=== PATIENT | male | born 1975 | race Caucasian/White ===

== ENCOUNTER 2022-09-26 09:15 | Emergency (ER) | payer BC ==
--- OUTSIDE RECORDS SUMMARY | 2022-09-26 09:18 | XMS REPORT | Continuity of Care Document ---
:1975 Author Organization Formerly [facility] t Address [address] [place] [address] Care Team Providers Name Role Phone JUANITO BROWN Primary Care Physician Unavailable JUANITO BROWN Attending Clinician Unavailable RAKESH TORRES Attending Clinician Unavailable Ken Khan MD Attending Clinician Gwendolyn Lam MD Attending Clinician Unknown, Attending Attending Clinician Unavailable UNKNOWN, ATTENDING Attending Clinician Unavailable GWENDOLYN LAM Attending Clinician Unavailable Doctor Unassigned, [place] Attending Clinician Unavailable LAB90 Attending Clinician Unavailable GERARDO HUDSON Attending Clinician Unavailable Halle Pino Attending Clinician Gerardo Rae Attending Clinician SURYA BETHEA Attending Clinician Unavailable Surya Bethea MD Attending Clinician Radha Spaulding MD Attending Clinician [phone] HALLE MYERS Attending Clinician Unavailable VALARIE TOMLINSON Attending Clinician Unavailable MAURICE CRONIN Attending Clinician Unavailable PAVEL YARBROUGH Attending Clinician Unavailable DORA PRUITT Attending Clinician Unavailable KOJO PATIÑO Attending Clinician Unavailable Payers Payer Name Policy Type Policy Number Effective Date Expiration Date S [facility] 2 [id number] 2022 00:00:00 Problems Condition Condition Condition Status Onset Resolution Last Treating Co mments Source Name Details Category Date Date Treatment Clinician Date Well adult Well adult Disease Active 2021-04 Chris parikh exam exam 04-12 Seybold 00:00: - 00 Externa l Primary Primary Disease Active 2021-04 Elsa hypertensi hypertensi 04-12 Se ybold on on 00:00: - 00 Externa l Fatty Fatty Disease Active 2021-04 Elsa liver liver 04-12 Seybold 00:00: - 00 Externa l Class 3 Class 3 Disease Active 2021-04 Elsa severe severe 04-12 Seybold obesity obesity 00:00: - due to due to 00 Externa excess excess l calories calories with with serious serious comorbidit comorbidit y and body y and body mass index mass index (BMI) of (BMI) of 40.0 to 40.0 to 44.9 in 44.9 in adult adult Gastroesop Gastroesop Disease Active 2021-04 Chris jl hageal hageal 04-12 Seybold reflux reflux 00:00: - disease disease 00 Externa without without l esophagiti esophagiti s s History of History of Disease Active 2021-04 Chris jl cold sores cold sores 04-12 Se ybold 00:00: - 00 Externa l Elevated Elevated Disease Active 2021-04 Kelse y liver liver 04-12 Seybold function function 00:00: - tests tests 00 Externa l COVID-19 COVID-19 Disease Active 2020-04 Unive rs virus virus 0-15 [place] Fever Fever Disease Active 2020-04 Univers blister blister 0-15 ity of 00:00: [place] 00 Medical Branch Aortic Aortic Disease Active 2020-04 Univers root root 0-15 ity of dilation dilation 00:00: [place] 00 Medical Branch Need for Need for Disease Active 2020-04 Unive rs hepatitis hepatitis 0-15 ity of C C 00:00: [place] screening screening 00 Medi smooth test test Branch Need for Need for Disease Active 2020-04 Unive rs influenza influenza 0-15 it[place] of vaccinatio vaccinatio [place] Hypertrigl Hypertrigl Disease Active 2020-04 U nivers yceridemia yceridemia 0-15 it y of 00:00: [place] 00 Medical Branch Asymptomat Asymptomat Disease Active U nivers ic ic 8-25 ity of hypertensi hypertensi 00:[place] ve urgency ve urgency 00 Me dical Branch Anxiety Anxiety Disease Active Univers and and 8-25 ity of depression depression 00:00: [place] Morbid Morbid Disease Active Univers obesity obesity 8-25 ity of with body with body 00:[place] mass index mass index 00 Me dical (BMI) of (BMI) of Branch 40.0 or 40.0 or higher higher Alcohol Alcohol Disease Active Univers dependence dependence 8-25 it y of with with 00:00: [place] uncomplica uncomplica 00 Me dical cortney cortney Branch withdrawal withdrawal Essential Essential Disease Active Uni vers hypertensi hypertensi 9-17 it y of on, benign on, benign 00:[place]: [place] Obesity Obesity Disease Active Univers (BMI (BMI 4-12 ity of 30-39.9) 30-39.9) 00:00: [place] 00 [facility] Branch Allergies, Adverse Reactions, Alerts Allergy Allergy Status Severity Reaction(s) Onset Inactive Treating Comm ents Source Name Type Date Date Clinician NO KNOWN Drug Active Univers ALLERGIE Class ity of S [facility] Social History Social Habit Start Date Stop Date Quantity Comments Source Gender identity [facility] Sexual orientation [facility] History SDOH Elsa kat - Alcohol Binge External History SDOH Elsa kat - Alcohol Frequency Externa l History ALECIA kat - 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 Exposure to 2022-03-28 2022-04-07 Not sure [facility]-CoV-2 (event) 00:00:00 14:38:00 [facility] Alcohol Comment 2022-02-10 2022-02-10 Weekly Elsa correa - 00:00:00 00:00:00 External Education 2022-02-10 2022-02-10 18 Esla Lai - 00:00:00 00:00:00 External History of Social 2022-02-10 2022-02-10 Elsa Lai - function 00:00:00 00:00:00 External Alcohol intake 2022-02-10 2022-02-10 Elsa Sey bold - 00:00:00 00:00:00 External Tobacco use and 2021-11-15 2021-11-15 User of smokeless Un iversity of exposure 00:00:00 00:00:00 tobacco [facility] Tobacco Comment 2021-11-15 2021-11-15 Occasional Universit y of 00:00:00 00:00:00 chewing tobacco [facility] Sex Ass[birth year] [facility] 00:[facility] Smoking Status Start Date Stop Date Source Tobacco smoking consumption [facility] unknown Never smoked tobacco [facility] Medications Ordered Filled Start Stop Current Ordering Indication Dosage Frequency Signature Comments Components Source Medication Medication Date Date Medication? 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 albuterol 0 Yes [id number] 2.5mg Inhale 3 Univers 2.5 mg /3 1-02 mL every 4 ity of mL (0.083 00:00: (four) [place] %) 00 hours as Medical nebulizer needed for Bran ch solution Shortness of Breath. amoxicillin 2022- No [id number] 1{tbl} Take 1 Univers -clavulanat 1-02 01-10 tablet by it y of e 00:00: 05:59 mouth in [place] (AUGMENTIN) 00 :00 the Medical 875-125 mg morning Branch per tablet and 1 tablet in the evening. Do all this for 7 days. olmesartan 2021-04- No 5mg QD Take 1 Meth yesy (Benicar) 5 2-12 12-13 tablet (5 st MG tablet 00:00: 05:59 mg total) Ho spita 00 :00 by mouth l daily. Omeprazole 2021-04 Yes 20mg Take 20 mg K elsey 20 MG oral 1-07 by mouth Seybo ld Delayed 08:52: daily - Release 04 Externa Capsule l Omeprazole 2021-04 Yes 20mg Take 20 mg K elsey 20 MG oral 1-07 by mouth Seybo ld Delayed 08:52: daily - Release 04 Externa Capsule l Omeprazole 2021-04 Yes 20mg Take 20 mg K elsey 20 MG oral 1-07 by mouth Seybo ld Delayed 08:52: daily - Release 04 Externa Capsule l Valacyclovi 2021-04 Yes [id number] 500mg Take 1 Elsa r HCl 1-07 tablet Seybold (Valtrex) 00:00: (500 mg - 500 MG oral 00 total) by Ext tenisha Tablet mouth 2 l times daily carvedilol Yes TAKE 1 Unive rs 40 mg 24 hr 8-31 CAPSULE BY it y of capsule 00:00: MOUTH [place] EVERY DAY Medical WITH FOOD Branch olmesartan Yes 5mg Take 5 mg Un ora 5 mg tablet 8-31 by mouth ity of 00:00: in the [place] 00 morning. Medical Branch carvedilol Yes TAKE 1 Unive rs 40 mg 24 hr 8-31 CAPSULE BY it y of capsule 00:00: MOUTH EVERY DAY Medical WITH FOOD Branch olmesartan Yes 5mg Take 5 mg Un ora 5 mg tablet 8-31 by mouth ity of 00:00: in the [place] morning. Medical Branch carvedilol 0 Yes TAKE 1 Unive rs 40 mg 24 hr 8-31 CAPSULE BY it y of capsule 00:00: MOUTH [place] 00 EVERY DAY Medical WITH FOOD Branch olmesartan 2021-0 Yes 5mg Take 5 mg Un ora 5 mg tablet 8-31 by mouth ity of 00:00: in the [place] morning. Medical Branch Carvedilol 2021-0 Yes 40mg Take 40 mg K elsey Phosphate 8-31 by mouth Seybol d 40 MG oral 00:00: daily WITH - Capsule 24 00 FOOD Externa Hour l Sustained Release Olmesartan 2021-0 Yes 1{tbl} Take 1 Will sey Medoxomil 5 8-31 tablet by Sey bold MG oral 00:00: mouth - Tablet 00 daily Externa l Carvedilol 2021-0 Yes 40mg Take 40 mg K elsey Phosphate 8-31 by mouth Seybol d 40 MG oral 00:00: daily WITH - Capsule 24 00 FOOD Externa Hour l Sustained Release Olmesartan 2021-0 Yes 1{tbl} Take 1 Will sey Medoxomil 5 8-31 tablet by Sey bold MG oral 00:00: mouth - Tablet 00 daily Externa l Carvedilol 2021-0 Yes 40mg Take 40 mg K elsey Phosphate 8-31 by mouth Seybol d 40 MG oral 00:00: daily WITH - Capsule 24 00 FOOD Externa Hour l Sustained Release Olmesartan 2021-0 Yes 1{tbl} Take 1 Will sey Medoxomil 5 8-31 tablet by Sey bold MG oral 00:00: mouth - Tablet 00 daily Externa l mupirocin 2 2021-0 Yes [id number] Apply to Univers % ointment 8-12 area(s) 3 ity of 00:00: (three) [place] 00 times Medical daily. Branch mupirocin 2 2021-0 Yes [id number] Apply to Univers % ointment 8-12 area(s) 3 ity of 00:00: (three) [place] 00 times Medical daily. Branch mupirocin 2 2021-0 Yes [id number] Apply to Univers % ointment 8-12 area(s) 3 ity of 00:00: (three) [place] 00 times Medical daily. Branch mupirocin 2 Yes [id number] Apply to Univers % ointment 812 area(s) 3 ity of 00:00: (three) [place] 00 times Medical daily. Branch cephALEXin 2021- No [id number] 500mg Take 1 Univers 500 mg 11-15 08-20 capsule by ity of capsule 00:00: 04:59 mouth 4 [place] 00 :00 (four) Medical times Branch daily for 7 days. valACYclovi 2020-04 Yes [id number] Take 1 U nivers r 500 mg 0-15 pill twice ity o f tablet 00:00: a day on day 1, Medical take 1 on Branch days 2-4 as needed for fever blister. Appt needed for refills valACYclovi 2020-04 Yes [id number] Take 1 U nivers r 500 mg 0-15 pill twice ity o f tablet 00:00: a day on 1, Medical take 1 on Branch days 2-4 as needed for fever blister. Appt needed for refills valACYclovi 2020-04 Yes [id number] Take 1 U nivers r 500 mg 0-15 pill twice ity o f tablet 00:00: a day on day 1, Medical take 1 on Branch days 2-4 as needed for fever blister. Appt needed for refills valACYclovi 2020-04 Yes [id number] Take 1 U nivers r 500 mg 0-15 pill twice ity o f tablet 00:00: a day on day 1, Medical take 1 on Branch days 2-4 as needed for fever blister. Appt needed for refills valACYclovi 2020-04 Yes [id number] Take 1 U nivers r 500 mg 0-15 pill twice ity o f tablet 00:00: a day on day 1, Medical take 1 on Branch days 2-4 as needed for fever blister. Appt needed for refills valACYclovi 2020- No [id number] Take 1 Univers r 500 mg 9-28 10-15 pill twice ity of tablet 00:00: 00:00 a day on [place] : day 1, Medical take 1 on Branch days 2-4 as needed for fever blister. Appt needed for refills benzonatate 0 Yes [id number] 100mg Take 1 Univers (TESSALON 3-04 capsule by ity of PERLKwaab) 100 00:00: mouth 3 [place] as mg capsule 00 (three) Medica l times Branch daily. benzonatate 0 Yes [id number] 100mg Take 1 Univers (TESSALON 3-04 capsule by ity of PERL) 100 00:00: mouth 3 [place] as mg capsule 00 (three) Medica l times Branch daily. benzonatate Yes [id number] 100mg Take 1 Univers (TESSALON 3-04 capsule by ity of PERL) 100 00:00: mouth 3 [place] as mg capsule 00 (three) Medica l times Branch daily. benzonatate Yes [id number] 100mg Take 1 Univers (TESSALON 3-04 capsule by ity PERL) 100 00:00: mouth 3 [place] as mg capsule 00 (three) Medica l times Branch daily. benzonatate Yes [id number] 100mg Take 1 Univers (TESSALON 3-04 capsule by ity [facility]) 100 00:00: mouth 3 [place] as mg capsule 00 (three) Medica l times Branch daily. albuterol 2020- No [id number] 2{puff} Inhale 2 Univers 90 3-04 10-15 Puffs ity of mcg/actuati 00:00: 00:00 [place] 6 [place] inhaler 00 :00 (six) Medical hours as Branch needed for Wheezing. methylPREDN 2020- No [id number] Take by Univers ISolone 3-04 10-15 mouth ity of (MEDROL, 00:00: 00:00 [place]-INSTRU [place] GILMA,) 4 mg 00 :00 CTIONS. Medica l tablets follow Branch package directions carvediloL Yes Univers 6.25 mg 1-05 ity of tablet 00:00: [address] Branch atorvastati Yes Univer s n 20 mg 1-05 ity of tablet 00:00: [address] Branch carvediloL Yes Univers 6.25 mg 1-05 ity of tablet 00:00: [address] Branch atorvastati Yes Univer s n 20 mg 1-05 ity of tablet 00:00: [place] 00 Medical Branch carvediloL 2020-0 Yes Univers 6.25 mg 1-05 ity of tablet 00:00: [place] Medical [facility] atorvastati 2020-0 Yes Univer s n 20 mg 1-05 ity of tablet 00:00: [place] [facility] carvediloL 2020-0 Yes Univers 6.25 mg 1-05 ity of tablet 00:00: [place] Medical [facility] atorvastati 2020-0 Yes Univer s n 20 mg 1-05 ity of tablet 00:00: [place] Medical [facility] carvediloL 2020-0 Yes Univers 6.25 mg 1-05 ity of tablet 00:00: [place] Medical [facility] atorvastati 0 Yes Univer s n 20 mg 1-05 ity of tablet 00:00: [place] 00 Medical Branch Amlodipine- 2019-0 Yes 1{tbl} Take 1 Un ora Olmesartan 9-27 tablet by ity of 10-20 mg 00:00: mouth [place] Tab 00 every Medical morning. Branch Amlodipine- 2019-0 Yes 1{tbl} Take 1 Un ora Olmesartan 9-27 tablet by ity of 10-20 mg 00:00: mouth [place] Tab 00 every Medical morning. Branch Amlodipine- 2019-0 Yes 1{tbl} Take 1 Un ora Olmesartan 9-27 tablet by ity of 10-20 mg 00:00: mouth [place] Tab 00 every Medical morning. Branch Amlodipine- 2019-0 Yes 1{tbl} Take 1 Un ora Olmesartan 9-27 tablet by ity of 10-20 mg 00:00: mouth [place] Tab 00 every Medical morning. Branch Amlodipine- 2019-0 Yes 1{tbl} Take 1 Un ora Olmesartan 9-27 tablet by ity of 10-20 mg 00:00: mouth [place] Tab 00 every Medical morning. Branch olmesartan 2019-0 2020- No [id number] 20mg Take 1 Univers 20 mg 9-27 10-15 tablet by ity of tablet 00:00: 00:00 mouth [place] 00 :00 every Medical evening. Branch omeprazole 2019-0 Yes 20mg Take 20 mg U nivers 20 mg 8-25 by mouth ity of capsule 11:01: daily. [address] omeprazole 2020-0 Yes 20mg Take 20 mg U nivers 20 mg 8-25 by mouth ity of capsule 11:01: daily. [address] omeprazole 2020-0 Yes 20mg Take 20 mg U nivers 20 mg 8-25 by mouth ity of capsule 11:01: daily. [address] omeprazole 2020-0 Yes 20mg Take 20 mg U nivers 20 mg 8-25 by mouth ity of capsule 11:01: daily. [address] omeprazole 2020-0 Yes 20mg Take 20 mg U nivers 20 mg 8-25 by mouth ity of capsule 11:01: daily. [address] furosemide 2019-0 2021- No [id number] 20mg Take 1 Univers 20 mg 8-25 10-15 tablet by ity of tablet 00:00: 00:00 [facility] 00 :00 every Medical morning Branch and evening. Immunizations Ordered Filled Immunization Date Status Comments [facility] e Immunization Name Name TDAP 2021-12-16 Completed [facility] 00:00:00 [facility] TDAP 2021-12-16 Completed [facility] 00:00:00 [facility] TDAP 2021-12-16 Completed [facility] 00:00:00 [facility] Tdap- (Boostrix, 2021-12-16 Completed Elsa Traylor eyboshey - Adacel) 00:00:00 External Tdap- (Boostrix, 2021-12-16 Completed Elsa Traylor eybold - Adacel) 00:00:00 External Tdap- (Boostrix, 2021-12-16 Completed Elsa anton - Adacel) 00:00:00 External FLUCELVAX QUAD PF 2020-02-[address] 00:[facility] Hospital FLUCELVAX QUAD PF 2020-02-[address] 00:[facility]00 Hospital Influenza, 2020-02-10 Completed Elsa Lai - Injectable, Mdck, 00:00:00 Externa l Preservative Free, Quadrivalt Influenza, 2020-02-10 Completed Elsa Lai - Injectable, Mdck, 00:00:00 Externa l Preservative Free, Quadrivalt Influenza, 2020-02-10 Completed Elsa Lai - Injectable, Mdck, 00:00:00 Externa l Preservative Free, Quadrivalt TDAP (ADACEL) 2018-09-20 Completed University of VACCINE 00:00:00 [facility] TDAP (ADACEL) 2018-09-20 Completed University of VACCINE 00:00:00 [facility] TDAP (ADACEL) 2018-09-20 Completed University of VACCINE 00:00:00 [facility] TDAP (ADACEL) 2018-09-20 Completed University of VACCINE 00:00:00 [facility] TDAP (ADACEL) 2018-09-20 Completed University of VACCINE 00:00:00 [facility] Tdap- (Boostrix, 2018-09-20 Completed Elsa Traylor eybold - Adacel) 00:00:00 External Tdap- (Boostrix, 2018-09-20 Completed Elsa Traylor eybold - Adacel) 00:00:00 External Tdap- (Boostrix, 2018-09-20 Completed Elsa Traylor eybold - Adacel) 00:00:00 External Vital Signs Vital Name Observation Time Observation Value Comments Source Systolic blood 2022-08-04 13:19:00 128 mm[Hg] Elsa Lai - pressure External Diastolic blood 2022-08-04 13:19:00 86 mm[Hg] Edie jovel Seybold - pressure External Heart rate 2022-08-04 13:19:00 71 /min Elsa anton - External Body temperature 2022-08-04 13:19:00 36.28 Vanessa Jeannette Lai - External Respiratory rate 2022-08-04 13:19:00 14 /min Jeannette Lai - External Body height 2022-08-04 13:19:00 188 cm Elsa anton - External Body weight 2022-08-04 13:19:00 153.769 kg Elsa anton - External BMI 2022-08-04 13:19:00 43.53 kg/m2 Elsa anton - External Oxygen saturation in 2022-08-04 13:19:00 98 /min Elsa Lai - Arterial blood by External Pulse oximetry Systolic blood 2022-04-07 20:45:00 125 mm[Hg] Univer sity of pressure [facility] Diastolic blood 2022-04-07 20:45:00 84 mm[Hg] Unive rsity of pressure [facility] Heart rate 2022-04-07 20:45:00 98 /min Universi ty of [place] [facility] [place] Body temperature 2022-04-07 20:45:00 36.72 Vanessa Univ ersity of [facility] Respiratory rate 2022-04-07 20:45:00 19 /min Univ ersity of [facility] Body weight 2022-04-07 20:45:00 105.235 kg Universi ty of [facility] BMI 2022-04-07 20:45:00 29.79 kg/m2 Universi ty of [facility] Oxygen saturation in 2022-04-07 20:45:00 96 /min University of Arterial blood by [facility] Pulse oximetry Branch Systolic blood 2022-02-10 14:49:00 136 mm[Hg] Elsa Dayybold - pressure External Diastolic blood 2022-02-10 14:49:00 84 mm[Hg] Edie y Seybold - pressure External Heart rate 2022-02-10 14:49:00 80 /min Elsa maldonadobold - External Body temperature 2022-02-10 14:49:00 36.39 Vanessa Jeannette maldonado Seybold - External Respiratory rate 2022-02-10 14:49:00 15 /min Jeannette maldonado Seybold - External Body height 2022-02-10 14:49:00 188 cm Elsa maldonadobold - External Body weight 2022-02-10 14:49:00 157.852 kg Elsa maldonadobold - External BMI 2022-02-10 14:49:00 44.68 kg/m2 Elsa maldonadoboshey - External Oxygen saturation in 2022-02-10 14:49:00 99 /min Elsa Lai - Arterial blood by External Pulse oximetry Systolic blood 2021-12-16 22:23:00 138 mm[Hg] Univer sity of pressure [facility] Diastolic blood 2021-12-16 22:23:00 104 mm[Hg] Unive rsity of [email or web address] Heart rate 2021-12-16 22:23:00 79 /min Universi ty of [facility] Body temperature 2021-12-16 22:23:00 37.06 Vanessa Univ ersity of [facility] Respiratory rate 2021-12-16 22:23:00 18 /min Univ ersity of [place] [facility] Body height 2021-12-16 22:23:00 188 cm Universi ty of [place] [facility] Body weight 2021-12-16 22:23:00 149.506 kg Universi ty of [place] [facility] BMI 2021-12-16 22:23:00 42.32 kg/m2 Universi ty of [place] [facility] Oxygen saturation in 2021-12-16 22:23:00 97 /min University of Arterial blood by [place] [employer] smooth Pulse oximetry Branch Systolic blood 2021-11-15 20:13:00 132 mm[Hg] Univer sity of pressure [place] [facility] Diastolic blood 2021-11-15 20:13:00 108 mm[Hg] Unive rsity of pressure [place] [facility] Heart rate 2021-11-15 20:12:00 100 /min Universi ty of [place] [facility] Body temperature 2021-11-15 20:12:00 37.22 Vanessa Univ ersity of [place] [facility] Respiratory rate 2021-11-15 20:12:00 18 /min Univ ersity of [place] [facility] Body height 2021-11-15 20:12:00 188 cm Universi ty of [place] [facility] Body weight 2021-11-15 20:12:00 145.831 kg Universi ty [facility] [place] [facility] BMI 2021-11-15 20:12:00 41.28 kg/m2 Universi ty [facility] [place] [facility] Oxygen saturation in 2021-11-15 20:12:00 96 /min University of Arterial blood by [place] [employer] smooth Pulse oximetry Branch Systolic blood 2021-01-18 18:08:00 133 mm[Hg] Univer sity of pressure [place] [facility] Diastolic blood 2021-01-18 18:08:00 88 mm[Hg] Unive rsity of pressure [place] [facility] Heart rate 2021-01-18 18:08:00 118 /min Universi ty [facility] [place] [facility] Body temperature 2021-01-18 18:08:00 36.83 Vanessa Univ ersity of [place] [facility] Respiratory rate 2021-01-18 18:08:00 18 /min Univ ersity of [place] [facility] Body height 2021-01-18 18:08:00 188 cm Universi ty of [place] [facility] Body weight 2021-01-18 18:08:00 141.931 kg Universi ty of [place] [facility] BMI 2021-01-18 18:08:00 40.17 kg/m2 [facility] Oxygen saturation in 2021-01-18 18:08:00 97 /min [facility] Arterial blood by [facility] Pulse oximetry Branch Procedures Procedure Date / Time Performed Performing Clinician Irma irene ASSIGNMENT OF BENEFITS 2022-04-07 20:38:01 Doctor Unassigned, No [facility] TDAP VACCINE, >11 YRS, 2021-12-16 22:31:[address] [facility] Plan of Care Planned Activity Planned Date Details Comments Source Future Scheduled 2022-09-23 Screening for [facility] Test 12:42:31 malignant neoplasm of colon (procedure) [code = 200695146] Future Scheduled 2022-09-23 Screening for [facility] Test 12:42:31 malignant neoplasm of colon (procedure) [code = 556361007] Future Scheduled 2022-09-23 Screening for [facility] Test 12:42:31 malignant neoplasm of colon (procedure) [code = 359985676] Future Scheduled 2022-09-23 COVID-[address] [facility] Test 12:42:31 (#1) [code = COVID-19 VACCINE (#1)] Future Scheduled 2022-09-23 Screening for [facility] Test 12:42:31 malignant neoplasm of colon (procedure) [code = 018688920] Future Scheduled 2022-09-23 Screening for [facility] Test 12:42:31 malignant neoplasm of colon (procedure) [code = 789642811] Future Scheduled 2022-09-23 INFLUENZA VACCINE [facility] 12:42:31 [code = INFLUENZA VACCINE] Future Scheduled 2021-03-14 COVID-[address] [facility] Test 12:33:55 (1) [code = COVID-19 VACCINE (1)] Future Scheduled 2021-03-14 [facility]ENZA [facility]ACCINE [facility] 12:33:55 [code = INFLUENZA VACCINE] Encounters Start End Encounter Admission Attending Care Care Encounter Source Date/Time Date/Time Type Type Clinicians Facility Department ID 2022-10-01 2022-10-01 Outpatient ELSA BROWN [id number] Elsa 11:15:00 11:15:00 JUANITO [place] 2022-09-23 2022-09-23 Outpatient KALELSA HTOMAS [id number] Elsa 12:30:00 12:30:00 RAKESH Seybol d 2022-09-23 2022-09-23 Edu Khan [id number] Methodi 00:00:00 00:00:00 Roderickar [id number] [facility] [id number] Hospit [id number] .[id number] 2022-09-02 2022-09-02 Outpatient PREELSA HUNT [id number] Elsa 16:00:00 16:00:00 JUANITO Seybol d 2022-08-07 2022-08-07 Outpatient ELSA BROWN [id number] Elsa 00:00:00 00:00:00 JUANITO Seybol d 2022-08-07 2022-08-07 Outpatient PREELSA HUNT [id number] Elsa 00:00:00 00:00:00 JUANITO Seybol d 2022-08-04 2022-08-04 Outpatient PREZAELSA Traylor [id number] Elsa 08:15:00 08:15:00 JUANITO Seybol d 2022-05-13 2022-05-13 Outpatient PREELSA HUNT [id number] Elsa 00:00:00 00:00:00 JUANITO Seybol d 2022-04-07 2022-04-07 Urgent Gwendolyn Lam [facility] 1.2.840.114 [id number] Univers 14:40:00 15:00:00 Care Unknown, Attending [facility] [id number] ity [facility] [id number] [place] ROYER?BLEA [phone] [address] MEDICAL OFFICE BUILDING 2022-04-07 2022-04-07 Outpatient R UNKNOWN, ATTENDING [place] [id number] Univers 14:40:00 14:40:00 GWENDOLYN LAM i [facility] 2022-04-07 2022-04-07 Orders Doctor MERCADO 1.2.840.114 [id number] Univers 00:00:00 00:00:00 Only Unassigned, TAL 350.1.13.10 ity of [facility] [id number] [place] as [phone] [address] 2022-03-17 2022-03-17 Edu Khan, 1.2.840.1 2099 [id number] Methodi 00:00:00 00:00:[address] [place] 3.430.2.7 Hospit a .3.301850 l .8 2022-03-04 2022-03-04 Refangelica Khan, 1.2.840.1 2099 [id number] Methodi 00:00:00 00:00:[address] [place] 3.430.2.7 Hospit a .3.237554 l .8 2022-02-10 2022-02-10 Outpatient LAB90 ELSA GARCIA [id number] Elsa 09:30:00 09:30:00 [place] 2022-02-10 2022-02-10 Outpatient ELSA BROWN [id number] Elsa 08:45:00 08:45:00 [place]UANITO [place] 2021-12-16 2021-12-16 Outpatient Cara LAM [place] [id number] Univers 17:20:00 17:36:[address] [facility] [place] [place] 2021-12-16 2021-12-16 Urgent Genaro [facility] 1.2.840.114 [id number] Univers 17:20:00 17:36:50 Care [facility] 350.1.13.10 it y of [place] 4.2.7.2.686 [place] ROYER?BLEA [phone] [address] MEDICAL OFFICE BUILDING 2021-11-15 2021-11-15 Outpatient Cara HUDSON [place] [id number] Univers 15:00:00 15:26:14 GERARDO pérez [facility] 2021-11-15 2021-11-15 Urgent Halle Myers [facility] 1.2.840.114 [id number] Univers 15:00:00 15:26:14 [facility] [id number] ity of [place] 4.2.7.2.686 [place] ROYER?BLEA [phone] [facility] [address] [facility] OFFICE [facility] 2021-07-19 2021-07-19 Outpatient R [facility] [id number] Univers 15:40:00 15:40:00 SURYA pérez [facility] 2021-01-18 2021-01-18 Office [facility] 1.2.840.114 [id number] Univers 12:56:58 13:50:45 Visit Surya Barrett 350.1.13.10 i [place] [phone] [address] 2021-01-18 2021-01-18 Outpatient R [facility] [id number] Univers 13:00:00 13:00:00 SURYA [facility] 2021-01-18 2021-01-18 Orders Doctor JESS 1.2.840.114 [id number] Univers 00:00:00 00:00:00 Only Unassigned, TAL 350.1.13.10 ity of [place] [facility] 4.2.7.2.686 [place] as [phone] [address] 2021-01-02 2021-01-02 Telephone [facility] 1.2.840.114 [id number] Univers 00:00:00 00:00:00 Surya Barrett 350.1.13.10 [place] [phone] [facility] [address] [facility] 2020-12-31 2020-12-31 Refill JassonRUST 1.2.840.114 [id number] Univers 00:00:00 00:00:00 Radha Barrett 350.1.13.10 [place] [phone] [facility] [address] [facility] 2020-12-31 2020-12-31 Telephone JassonRUST 1.2.840.114 [id number] Univers 00:00:00 00:00:00 Radha Barrett 350.1.13.10 [facility] 4.2.7.2.686 Janee Luns[place] [phone] [place] [address] 2020-06-23 2020-06-23 [facility] [id number] Univers 13:40:00 13:40:00 HALLE [facility] 2020-06-07 2020-06-07 Outpatient [facility] [id number] Univers 09:00:00 09:00:00 VALARIE [facility] 2020-06-03 2020-06-03 Out[facility] [id number] Univers 10:20:00 10:20:00 MAURICE baldwinbecka o f [facility] 2020-04-12 2020-04-12 Outpatient [facility] [id number] Univers 14:00:00 14:00:00 VALARIE [facility] 2020-02-28 2020-02-28 Out[facility] [id number] Univers 09:40:00 09:40:00 SURYA [facility] 2020-02-13 2020-02-13 Outpatient Cara [facility] [id number] Univers 15:00:00 [facility]:00:[facility] 2020-02-10 2020-02-10 Outpatient [facility] [id number] [place] 00:00:00 00:00:[address] 2020-01-06 2020-01-06 [facility] [id number] Univers 00:00:00 00:00:00 [facility] 2019-12-30 2019-12-30 Outpatient Cara [facility] [id number] Univers 15:30:00 15:30:00 [facility] 2019-12-16 2019-12-16 Outpatient [facility] [id number] Univers 00:00:00 00:00:00 KOJO watters f [facility] 2019-11-29 2019-11-29 [facility] R KADY [place] [id number] [facility] 10:40:00 10:40:00 SURYA pérez of [facility] Results This patient has no known results.
[2022-09-26] MEDS ORDERED: KETOROLAC 30 MG/ML INJ ONE (09:51)
[2022-09-26] MEDS ORDERED: COLCHICINE 0.6 MG TAB ONE ×2 (09:51→11:05)
[2022-09-26 10:09] LABS: Absolute Lymphocytes (CBC) 2.3 K/uL (0.7-4.9); Hematocrit 49.3 % (39.6-49.0); Lymphocytes % 32.6 % (15.3-44.8); MCV 92.9 fL (80-100); MPV 7.6 fL (7.6-11.3); RBC Red Blood Cell Count 5.31 M/uL (4.33-5.43)
[2022-09-26 10:27] LABS: Potassium 4.5 mEq/L (3.5-5.1); Uric Acid 9.6 mg/dL (3.5-7.2)
--- NOTE | 2022-09-26 10:53 | ER ---
Nurse's Notes [facility] Name: Nicholas Marsh Age: 46 yrs Sex: Male : 1975 Arrival Date: 09/26/2022 Time: 09:15 Bed 9 Private MD: Diagnosis: Gout, unspecified Presentation: 09/26 09:23 Chief complaint: Patient states: Right ankle pain that has been going for the last 5-7 cm10 years and has gotten worse over the last few weeks. Patient was seen at urgent care a couple of weeks ago and was given steroids and pain medicine. Pt states that Thursday this week he started having increased pain and swelling. Coronavirus screen: Vaccine status: Patient reports receiving the 2nd dose of the covid vaccine. Client denies travel out of the [place] in the last 14 days. At this time, the client does not indicate any symptoms associated with coronavirus-19. Ebola Screen: Patient denies travel to an Ebola-affected area in the 21 days before illness onset. Initial Sepsis Screen: Does the patient meet any 2 criteria? No. Patient's initial sepsis screen is negative. Does the patient have a suspected source of infection? No. Patient's initial sepsis screen is negative. Risk Assessment: Do you want to hurt yourself or someone else? Patient reports no desire to harm self or others. Onset of symptoms was September 24, 2022. 09:23 Method Of Arrival: Ambulatory cm10 09:23 Acuity: SARAH 4 cm10 Historical: - Allergies: 09:29 No Known Allergies; cm10 - PMHx: 09:29 Hypertensive disorder; Gout; cm10 - PSHx: 09:29 umbilical hernia; cm10 - Immunization history:: Adult Immunizations unknown. - Social history:: Smoking status: Patient denies any tobacco usage or history of. Screenin:08 [facility] ED Fall Risk Assessment (Adult) Score/Fall Risk Level 0 - 2 = Low Risk ll1 Oriented to surroundings, Maintained a safe environment, Educated pt \T\ family on fall prevention, incl call for assistance when getting out of bed, Hourly rounding (assess needs \T\ fall precautionary measures) done. Abuse screen: Denies threats or abuse. Nutritional screening: No deficits noted. Tuberculosis screening: No symptoms or risk factors identified. Assessment: 10:05 General: Appears uncomfortable, Behavior is calm, cooperative, appropriate for age. ll1 Pain: Complains of pain in right ankle Quality of pain is described as aching. Musculoskeletal: Circulation, motion, and sensation intact. Capillary refill < 3 seconds. 10:08 Reassessment: No changes from previously documented assessment. Patient and/or family ll1 updated on plan of care and expected duration. Pain level reassessed. Patient is alert, oriented x 3, equal unlabored respirations, skin warm/dry/pink. 11:03 Reassessment: No changes from previously documented assessment. Patient and/or family ll1 updated on plan of care and expected duration. Pain level reassessed. Patient is alert, oriented x 3, equal unlabored respirations, skin warm/dry/pink. Vital Signs: 09:23 BP 121 / 65; Pulse 115; Resp 18; Temp 98.1(TE); Pulse Ox 99% on R/A; Weight 147.42 kg; cm10 Height 6 ft. 2 in. ; Pain 6/10; 11:02 BP 136 / 102; Pulse 108; Resp 17; Pulse Ox 99% ; ll1 09:23 Body Mass Index 41.73 (147.42 kg, 187.96 cm) cm10 09:23 Pain Scale: Adult cm10 ED Course: 09:18 Patient arrived in ED. im 09:20 Pham Mata FNP-C is PHCP. kb 09:20 Lucio Obrien MD is Attending Physician. kb 09:29 Triage completed. cm10 09:35 Arm band placed on Patient placed in an exam room, on a stretcher. cm10 09:39 Scooter Chong, CORIE is Primary Nurse. ll1 09:55 Inserted saline lock: 22 gauge in left antecubital area, using aseptic technique. ll1 ,using aseptic technique. by Nathaly state tested nursing assistant Blood collected. 10:00 CBC with Diff Sent. ll1 10:00 Basic Metabolic Panel Sent. ll1 10:07 IV discontinued, intact, bleeding controlled, Pressure dressing applied, pain when ll1 flushing. 10:08 Patient has correct armband on for positive identification. Bed in low position. Call ll1 light in reach. Cardiac monitoring not applicable on this patient. 11:03 No provider procedures requiring assistance completed. ll1 Administered Medications: 10:00 Drug: Colcrys PO 1.2 mg Route: PO; ll1 10:54 Follow up: Response: No adverse reaction 1 10:06 Drug: Ketorolac IVP 15 mg {Note: RASS 0, pain 6/10.} Route: IVP; Site: left antecubital;1 10:54 Follow up: Response: No adverse reaction ll1 11:01 Drug: Colcrys PO 0.6 mg Route: PO; 1 11:03 Follow up: Response: No adverse reaction 1 Medication: 10:08 VIS not applicable for this client. 1 Outcome: 10:52 Discharge ordered by . pili 11:03 Discharged to home ambulatory. 1 11:03 Condition: stable 11:03 Discharge instructions given to patient, Instructed on discharge instructions, follow up and referral plans. medication usage, Demonstrated understanding of instructions, follow-up care, medications, Prescriptions given X 2. 11:04 Patient left the ED. 1 Signatures: Pham Mata, BRAIDED RUG MAKER-C MITALI-Scooter Campbell RN RN 1 Clair Katz Clarissa, RN RN cm10
--- NOTE | 2022-09-26 10:53 | EDPHYS ---
Physician Documentation [facility] Name: Nicholas Marsh Age: 46 yrs Sex: Male : 1975 Arrival Date: 09/26/2022 Time: 09:15 Bed 9 Private MD: ED Physician Lucio Obrien HPI: 09/26 10:24 This 46 yrs old Male presents to ER via Ambulatory with complaints of Ankle pain. kb 10:24 The patient presents with pain, swelling, tenderness. The complaints affect the right kb ankle. Onset: The symptoms/episode began/occurred 3 week(s) ago. Context: The problem was sustained at home, resulted from an unknown cause, The patient can fully bear weight on the affected extremity. the patient is able to ambulate. Associated signs and symptoms: Pertinent positives: swelling, Pertinent negatives: calf tenderness, fever, nausea, numbness, rash, tingling, vomiting, warmth, weakness. Modifying factors: The symptoms are alleviated by nothing, the symptoms are aggravated by movement. Severity of symptoms: At their worst the symptoms were moderate, in the emergency department the symptoms are unchanged. The patient has not experienced similar symptoms in the past. The patient has been recently seen at an urgent care. Pt reports right ankle pain that started 3 weeks ago. Was seen at Urgent care and given a course of steroids that didn't help. Pt is traveling to [place] in the morning and wanted to make sure it was nothing serious. Denies injury or trauma. Reports history of gout.. Historical: - Allergies: 09:29 No Known Allergies; cm10 - PMHx: 09:29 Hypertensive disorder; Gout; cm10 - PSHx: 09:29 umbilical hernia; cm10 - Immunization history:: Adult Immunizations unknown. - Social history:: Smoking status: Patient denies any tobacco usage or history of. ROS: 10:18 Constitutional: Negative for fever, chills, and weight loss. kb 10:18 MS/extremity: Positive for erythema, pain, swelling, tenderness, of the right ankle. 10:18 All other systems are negative. Exam: 10:23 Constitutional: This is a well developed, well nourished patient who is awake, alert, kb and in no acute distress. Head/Face: Normocephalic, atraumatic. ENT: Moist Mucous membranes Cardiovascular: Regular rate and rhythm with a normal S1 and S2. No gallops, murmurs, or rubs. No pulse deficits. Respiratory: Respirations even and unlabored. No increased work of breathing. Talking in full sentences Skin: Warm, dry with normal turgor. Normal color. Neuro: Awake and alert, GCS 15, oriented to person, place, time, and situation. Moves all extremities. Normal gait. 10:23 Musculoskeletal/extremity: Extremities: grossly normal except: noted in the right ankle: erythema, pain, swelling, tenderness, ROM: limited active range of motion due to pain, Circulation is intact in all extremities. Sensation intact. Weight bearing: able to fully bear weight. Vital Signs: 09:23 BP 121 / 65; Pulse 115; Resp 18; Temp 98.1(TE); Pulse Ox 99% on R/A; Weight 147.42 kg; cm10 Height 6 ft. 2 in. ; Pain 6/10; 11:02 BP 136 / 102; Pulse 108; Resp 17; Pulse Ox 99% ; ll1 09:23 Body Mass Index 41.73 (147.42 kg, 187.96 cm) cm10 09:23 Pain Scale: Adult cm10 MDM: 09:20 Patient medically screened. kb 10:19 Differential diagnosis: sprain, tendonitis, cellulitis, abscess, gout. Data reviewed: vital signs, nurses notes. Test considered but Not performed: X-ray: x-ray considered, but pt has had no injury, pain has been ongoing for a few weeks. 10:51 Counseling: I had a detailed discussion with the patient and/or guardian regarding: the kb historical points, exam findings, and any diagnostic results supporting the discharge/admit diagnosis, lab results, the need for outpatient follow up, a orthopedic surgeon, to return to the emergency department if symptoms worsen or persist or if there are any questions or concerns that arise at home. 10:55 ED course: Pain improved. kb 09/26 09:38 Order name: CBC with Diff; Complete Time: 10:58 kb 09/26 09:38 Order name: Basic Metabolic Panel; Complete Time: 10:28 kb 09/26 09:38 Order name: Uric Acid; Complete Time: 10:28 kb 09/26 10:57 Order name: CBC Smear Scan; Complete Time: 10:58 EDMS 09/26 09:38 Order name: IV Start; Complete Time: 10:00 kb Administered Medications: 10:00 Drug: Colcrys PO 1.2 mg Route: PO; ll1 10:54 Follow up: Response: No adverse reaction ll1 10:06 Drug: Ketorolac IVP 15 mg {Note: RASS 0, pain 6/10.} Route: IVP; Site: left antecubital;ll1 10:54 Follow up: Response: No adverse reaction ll1 11:01 Drug: Colcrys PO 0.6 mg Route: PO; ll1 11:03 Follow up: Response: No adverse reaction ll1 Disposition: 17:46 Co-signature as Attending Physician, Lucio Obrien MD I reviewed the patient's care rn provided by the Advanced Practice Provider and agree with the diagnosis and treatment plan. Disposition Summary: 09/26/22 10:52 Discharge Ordered Location: Home kb Condition: Stable kb Diagnosis - Gout, unspecified kb Followup: kb - With: Emergency Department - When: As needed - Reason: Worsening of condition Followup: kb - With: Private Physician - When: 2 - 3 days - Reason: Recheck today's complaints, Continuance of care, Re-evaluation by your physician Discharge Instructions: - Discharge Summary Sheet kb - Low-Purine Eating Plan kb - Gout, [id number] kb Forms: - Medication Reconciliation Form kb - Thank You Letter kb - Antibiotic Education kb - Prescription Opioid Use kb Prescriptions: - indomethacin 25 mg Oral capsule - take 1 capsule by ORAL route 3 times per day As needed administer with food or kb milk; 21 capsule; Refills: 0, Product Selection Permitted - Cephalexin 500 mg Oral Capsule - take 1 capsule by ORAL route every 8 hours for 10 days; 30 capsule; Refills: 0, kb Product Selection Permitted Signatures: Dispatcher [employer] Pham Gill, MITALI-C TELEGRAPH DISPATCHER-Lucio Cook MD MD rn Lewis, Lynsay, RN RN ll1 Laquita Aranda, RN RN cm10 Corrections: (The following items were deleted from the chart) 10:28 10:24 Pt reports right ankle pain that started 3 weeks ago. Was seen at Urgent care and kb given a course of steroids that didn't help.. kb
[2022-09-26 10:57] LABS: Blood Morphology Comment NOT SEEN (NOT SEEN); Platelet Estimate ADEQ; White Blood Cell Scan OK (OK)
[2022-09-26 11:26] VITALS: TEMP 98.1; O2SAT 99
[2022-09-26 11:27] VITALS: BP 136/102
== END 2022-09-26 11:04 | disposition home or self-care (01) ==
LOC: ER 09:15
DX: M10.9 Gout, unspecified (principal); I10 Essential (primary) hypertension
CPT/HCPCS: 36415; 80048; 84550; 85025; 96374; 99284